=== PATIENT | female | born 1955 | race Caucasian/White ===

== ENCOUNTER 2023-06-30 14:00 | Outpatient (CLI) | payer MEDICARE | END 2023-06-30 14:01 | disposition home or self-care (01) | LOC: CSHMAMMO 14:00 | PROVIDERS: ATTEND Student in an Organized Health Care Education/Training Program | DX: Z12.31 Encounter for screening mammogram for malignant neoplasm of breast (principal); Z13.820 Encounter for screening for osteoporosis; M85.89 Other specified disorders of bone density and structure, multiple sites; Z78.0 Asymptomatic menopausal state | CPT/HCPCS: 77063; 77067; 77080 ==

== ENCOUNTER 2023-08-10 07:08 | Day surgery (SDC) | payer MEDICARE ==
[2023-08-08 14:11] VITALS: BMI 25.8
[2023-08-08 14:55] LABS: Hematocrit 42.1 % (34.9-44.5); Hemoglobin 14.6 g/dL (12.0-15.5); Mean Corpuscular HGB CONC 34.7 g/dL (32.0-36.0); Mean Corpuscular Hemoglobin 30.7 pg (27.0-33.0); Mean Corpuscular Volume 88.4 fL (81.6-98.3); Mean Platelet Volume 9.2 fL (7.4-10.4); Platelet Count 227 10x3/uL (150-450); RBC Distribution Width 12.4 % (11.5-14.5); Red Blood Cell (RBC) Count 4.76 10x6/uL (3.90-5.03); White Blood Cell (WBC) Count 7.2 10x3/uL (3.5-10.5)
[2023-08-10] MEDS ORDERED: CeleCOXIB 100 MG CAP ONE (07:17)
[2023-08-10] MEDS ORDERED: Lidocaine 2% PF 5 ML VIAL ONE (09:58)
[2023-08-10] MEDS ORDERED: Ondansetron PF 4 MG/2 ML Vial ONE (09:58)
[2023-08-10] MEDS ORDERED: fentaNYL 50 mcg/mL 1 mL Vial ONE (09:59)
[2023-08-10] MEDS ORDERED: Midazolam HCl 2 mg/2 ml Vial ONE (09:59)
[2023-08-10] MEDS ORDERED: PROPOFOL 20 ML ONE (09:59)
[2023-08-10] MEDS ORDERED: CEFAZOLIN 2 GM VIAL ONE (10:02)
== END 2023-08-10 12:05 | disposition home or self-care (01) ==
LOC: CSHSDC 07:08
PROVIDERS: ATTEND Obstetrics & Gynecology
PROC: 0UB98ZZ Excision of Uterus, Via Natural or Artificial Opening Endoscopic (ICD-10-PCS; principal; 2023-08-10)
DX: C54.1 Malignant neoplasm of endometrium (principal); N84.0 Polyp of corpus uteri; Z88.0 Allergy status to penicillin
CPT/HCPCS: 58558; 85027; 86850; 86900; 86901; J2001; J2250; J2405; J2704; J3010; 88305